=== PATIENT | female | born 1995 | race Caucasian/White ===

== ENCOUNTER → 2020-09-29 | Day surgery (SDC) | payer OTHER ==
[~2020-09-29] MED LIST: GABAPENTIN600 MG PO; IBU800 MG PO; MELATONIN5 M2 PO; OMEPRAZOLE20 M1 PO; PROZAC10 MG PO; VITAMIN D21250 MCG PO; XANAX0.5 MG PO
== END | disposition home or self-care (01) ==
LOC: OR 07:40
DX: R10.84 Generalized abdominal pain (principal); K59.09 Other constipation; R19.7 Diarrhea, unspecified; G89.29 Other chronic pain; K64.4 Residual hemorrhoidal skin tags; K60.2 Anal fissure, unspecified; I10 Essential (primary) hypertension; F41.9 Anxiety disorder, unspecified; E11.9 Type 2 diabetes mellitus without complications; K21.9 Gastro-esophageal reflux disease without esophagitis; E28.2 Polycystic ovarian syndrome; F17.290 Nicotine dependence, other tobacco product, uncomplicated; E66.3 Overweight; Z88.1 Allergy status to other antibiotic agents; Z68.29 Body mass index [BMI] 29.0-29.9, adult; Z79.84 Long term (current) use of oral hypoglycemic drugs; Z79.899 Other long term (current) drug therapy
CPT/HCPCS: 84703; J2704

== ENCOUNTER 2021-11-06 20:31 | Emergency (ER) | payer OTHER ==
[2021-11-06 21:07] LABS: HEMOGLOBIN 14.8 gm/dl (12.3-15.3); RED BLOOD COUNT 4.77 M/UL (4.00-5.10); WHITE BLOOD COUNT 7.7 K/UL (4.5-11.0)
[2021-11-06 21:26] LABS: BUN/CREATININE RATIO 21 (0-10)
[2021-11-07] MEDS ORDERED: PROTONIX40 M1 PO (00:25)
[2021-11-07] MEDS ORDERED: BENTYL 20MG TAB20 MG PO (00:25)
[2021-11-07] MEDS ORDERED: ZOFRAN 4 MG TAB4 MG PO (00:25)
== END 2021-11-07 03:36 | disposition home or self-care (01) ==
LOC: ER1 20:31
PROVIDERS: Physician Assistant Medical
DX: R10.84 Generalized abdominal pain (principal); Z88.1 Allergy status to other antibiotic agents
CPT/HCPCS: 80053; 81001; 83605; 83690; 84703; 85025; 96374; 96375; 99284; C9113; J2270; J2405; J2550; J2765; Q9967